=== PATIENT | male | born 1950 | race Caucasian/White ===

== ENCOUNTER 2016-11-05 14:49 | Emergency (ER) | payer SELFPAY ==
[2016-11-05 15:11] LABS: BASOPHIL COUNT 0.1 K/uL (0-0.1); EOSINOPHIL (%) 3.3 % (0-5); EOSINOPHIL COUNT 0.4 K/uL (0-0.3); HEMATOCRIT 34.6 % (38.0-50.0); IMMATURE GRANULOCYTE (%) 0.4 % (0.0-0.7); INSTRUMENT ABS NEUTROPHIL CT 5.1 K/uL; LYMPHOCYTE COUNT 4.3 K/uL (1.0-2.8); MCH 33.7 PG (29.0-34.0); MCHC 34.1 G/DL (30.0-36.0); MCV 98.9 FL (86-99); MEAN PLAT.VOLUME 10.4 uM^3 (9.0-12.4); MONOCYTE (%) 7.5 % (3-12); MONOCYTE COUNT 0.8 K/uL (0-0.8); NEUTROPHIL COUNT 5.1 K/uL (1.8-6.4); PLATELET COUNT 199 K/uL (156-360); RBC DIS.WIDTH-CV 12.6 % (11.8-14.6); RBC DIS.WIDTH-SD 45.7 % (39-53); WHITE BLOOD COUNT 10.5 K/uL (4.1-10.2)
[2016-11-05 16:19] LABS: AMYLASE 99 IU/L (1-118); CHLORIDE 102 mEq/L (99-109); POTASSIUM 4.3 mEq/L (3.7-5.4); SODIUM 136 mEq/L (136-147)
[2016-11-05 16:21] LABS: GLUCOSE 108 mg/dL (70-99)
[2016-11-05 16:21] LABS: ADD MIUA? NO; BILIRUBIN NEGATIVE; BLOOD NEGATIVE; COLOR YELLOW ((YELLOW)); GLUCOSE (STRIP) NEGATIVE; KETONES NEGATIVE; LEUKOCYTES NEGATIVE; NITRITE NEGATIVE; PROTEIN (STRIP) NEGATIVE; UCUL ADDED? NO; UROBILINOGEN 0.2 MG/DL (0.2-1.0)
[2016-11-05 16:23] LABS: ANION GAP 13 MEQ/L (2-14)
[2016-11-05 16:24] LABS: SERUM ETHYL ALCOHOL 171 mg/dL
[2016-11-05 16:25] LABS: GFR ESTIMATE (CALCULATED) 54 mL/min/
[2016-11-05 16:26] LABS: UREA NITROGEN (BUN) 35 mg/dL (9-23)
[2016-11-05 16:28] LABS: LIPASE 32 U/L (1.0-51.0)
[2016-11-05 16:31] LABS: AMPHETAMINE NEGATIVE (500 ng/mL); COCAINE NEGATIVE (150 ng/mL); METHAMPHETAMINE NEGATIVE (500 ng/mL); OPIATES (MORPHINE) NEGATIVE (100 ng/mL); PHENCYCLIDINE NEGATIVE (25 ng/mL); THC CANNABINOIDS NEGATIVE (50 ng/mL)
[2016-11-05 16:32] LABS: BARBITURATES NEGATIVE (200 ng/mL); BENZODIAZEPINES NEGATIVE (150 ng/mL); INTERNAL CONTROLS VALID? YES; METHADONE NEGATIVE (200 ng/mL); OXYCODONE NEGATIVE (100 ng/mL); PROPOXYPHENE NEGATIVE (300 ng/mL); TRICYCLIC ANTIDEPRESSANTS NEGATIVE (300 ng/mL)
[2016-11-05 20:33] LABS: TROP-I INTERPRETATION NEGATIVE; TROPONIN-I < 0.01 ng/mL (0.0-0.30)
[2016-11-05] MEDS ORDERED: PERCOCET 5/31 TABLET PO (21:16)
== END 2016-11-05 21:25 | disposition home or self-care (01) ==
LOC: TRA 14:49
PROVIDERS: Emergency Medicine
DX: S91.312A Laceration without foreign body, left foot, initial encounter (principal); S51.812A Laceration without foreign body of left forearm, initial encounter; S01.81XA Laceration without foreign body of other part of head, initial encounter; S00.01XA Abrasion of scalp, initial encounter; V29.40XA Motorcycle driver injured in collision with unspecified motor vehicles in traffic accident, initial encounter; F10.10 Alcohol abuse, uncomplicated; Z23 Encounter for immunization
CPT/HCPCS: 70450; 70486; 71010; 72125; 72170; 73090; 73564; 73630; 80048; 81003; 82150; 83690; 84484; 85025; 86900; 86901; 93005; 99281; 99285; G0480; J0690